=== PATIENT | male | born 1950 | race Caucasian/White ===

== ENCOUNTER → 2025-03-09 | Outpatient (CLI) | payer OTHER ==
[~2025-03-09] MED LIST: AEC81 PO; AMLO-258 PO; ATOR40TA69 PO; CEPH250S PO; CIPR-278 PO; GEMF600T89 PO; GOLY4L PO; METO100T14 PO; OMEP40CA21 PO; TAMS-55 PO
--- NOTE | 2025-03-09 15:35 | HMCIMG ---
MODIFIED BARIUM SWALLOW W CINE REASON: DYSPHAGIA, UNSPECIFIED; Feeding difficulties, unspecified FINDINGS: Fluoroscopic assistance was provided to the speech pathologist while performing examination. For findings and dietary recommendations, refer to speech pathologist's report. FLUORO TIME: 2.3 minutes IMPRESSION: Modified barium swallow as described.
== END | disposition home or self-care (01) ==
LOC: RAH 12:40
PROVIDERS: ATTEND Internal Medicine Gastroenterology
DX: R13.10 Dysphagia, unspecified (principal); R63.30 Feeding difficulties, unspecified
CPT/HCPCS: 74230; 92611

== ENCOUNTER 2025-04-26 06:33 | Day surgery (SDC) | payer OTHER ==
[2025-04-26] VITALS (11 sets, daily range): BP systolic 103–121; BP diastolic 57–79; PULSE 67–88; RESP 14–18; TEMP 97.6–98.2
[~2025-04-26] VITALS: Ht 172.7 cm; Wt 68.0 kg
[~2025-04-26 06:33] MED LIST changes: -AEC81 PO; +APIX5TAB PO; -CEPH250S PO; +CEVI30CA7 PO; -CIPR-278 PO; -GOLY4L PO; -METO100T14 PO; +METO25TA6 PO; -TAMS-55 PO
[2025-04-26] MEDS: 0.9%NACL 1000ML 1,000 ML IV ONE (07:23)
--- NOTE | 2025-04-26 09:50 | NUR ---
POST-GI VERIFIED WITH ARTI REHMAN IF PATIENT COULD START EATING. INSTRUCTED PATIENT TO KEEP USING PEG TUBE UNTIL SEEN IN THE OFFICE PER DR. MCCARTHY. PATIENT AND FAMILY VERBALIZED UNDERSTANDING.
== END 2025-04-26 09:55 | disposition home or self-care (01) ==
LOC: ENDO 06:33 → DAH 06:33 → ENDO 09:55
PROVIDERS: ATTEND Internal Medicine Gastroenterology
DX: K22.2 Esophageal obstruction (principal); R63.30 Feeding difficulties, unspecified; I10 Essential (primary) hypertension; E78.5 Hyperlipidemia, unspecified; C14.0 Malignant neoplasm of pharynx, unspecified; I48.20 Chronic atrial fibrillation, unspecified; Z90.49 Acquired absence of other specified parts of digestive tract; Z93.1 Gastrostomy status; Z98.890 Other specified postprocedural states; Z79.899 Other long term (current) drug therapy
CPT/HCPCS: 43248; J7030 ×2; J2704; A4620; A4215 ×2; A4223; A7002; A4222; A4221; A4663; A4606; J3490

== ENCOUNTER → 2025-05-17 | Outpatient (CLI) | payer OTHER ==
--- NOTE | 2025-05-17 13:30 | NUR ---
MBSS COMPLETED (OUTPATIENT). Deep non-transient penetration after the swallow with thin liquids via cup sip with no cough response. Deep transient penetration with pudding thick textures with no cough response. Penetration during the swallow with mildly thick liquids via cup sip. Penetration after the swallow with mixed textures with no cough response. RECOMMEND: regular solids (MOIST), mildly thick liquids, and pills crushed with pureed as tolerated. Pt complains of dry mouth making it difficult to swallow dry textures. Recommend continue with PEG tube placement until patient is able to eat by mouth enough to meet nutrition/hydration. COMPENSATORY STRATEGIES: 1. sit upright during oral intake 2. small bites/sips 3. slow oral intake 4. alternate bites/sips 5. NO STRAWS (as per patient, he never uses straws) 6. NOTHING THAT MELTS such as pudding, jello, ice cream, etc. 7. occasional throat clearing during oral intake NOTE: Pt with Hx of throat cancer (last chemo/radiation on December 2024) and dysphagia with PEG tube placement. As per patient, after MBSS completed on 03/09/2025, patient had dilation and has been cleared by GI for oral intake. Pt reports he started eating food and notices difficulty swallowing due to dry mouth. Pt said he did not experience dry mouth on last MBSS and it's something that started with recent medication. Pt was recommended Biotene by however is not making any difference. DIAGNOSTIC FINDINGS: Pt presented with mild oropharyngeal dysphagia characterized by dry mouth, decreased oral motor strength and ROM; decreased tongue base retraction; delayed pharyngeal response trigger, decreased hyo-laryngeal elevation/excursion and decreased sensation; evidenced by decreased bolus formation due to dry mouth with residue on roof and body of tongue post swallow; premature spillage to valleculae with occasionally spillover to pyriform sinuses; residue on base of tongue, valleculae, pyriform sinuses and posterior pharyngeal wall cleared with extra dry swallows; resulting in deep non-transient penetration after the swallow with thin liquids via cup sip with no cough response. Deep transient penetration with pudding thick textures with no cough response. Penetration during the swallow with mildly thick liquids via cup sip. Penetration after the swallow with mixed textures with no cough response. (penetrations cleared with innate throat clears). No aspirations. UNDERGRADUATE INTERN reviewed results and recommendations with patient. UNDERGRADUATE INTERN educated patient on risks and consequences of aspiration. Speech therapy not warranted at this time. Dysphagia best managed with diet modifications and compensatory strategies. Dysphagia likely due to esophageal issues, late effect of radiation/chemo and/or current complains of dry mouth. All questions answered. Addendum: 05/17/[address] [facility] Amended: Links added.
--- NOTE | 2025-05-18 05:24 | HMCIMG ---
Fluoroscopy is utilized for the procedure. The total fluoroscopy time is 003.7 min. The total dose area product is 313.18 (uGym2). The interpreting radiologist was not present during the procedure. /Curtiss
== END | disposition home or self-care (01) ==
LOC: RAH 13:00
PROVIDERS: ATTEND Internal Medicine Gastroenterology
DX: R63.30 Feeding difficulties, unspecified (principal); R13.12 Dysphagia, oropharyngeal phase
CPT/HCPCS: 74230; 92611